=== PATIENT | female | born 1950 | race Caucasian/White ===

== ENCOUNTER → 2016-08-24 | Outpatient (CLI) | payer MEDICARE | END | disposition home or self-care (01) | LOC: CFH 10:19 | PROVIDERS: ATTEND Nurse Practitioner | DX: Z12.31 Encounter for screening mammogram for malignant neoplasm of breast (principal); Z13.820 Encounter for screening for osteoporosis; N95.8 Other specified menopausal and perimenopausal disorders; M85.80 Other specified disorders of bone density and structure, unspecified site | CPT/HCPCS: 77080; G0202 ==

== ENCOUNTER → 2017-12-20 | Outpatient (CLI) | payer MEDICARE | END | disposition home or self-care (01) | LOC: CFH 12:01 | PROVIDERS: ATTEND Nurse Practitioner Primary Care | DX: R92.8 Other abnormal and inconclusive findings on diagnostic imaging of breast (principal) | CPT/HCPCS: 77065 ==

== ENCOUNTER → 2018-01-13 | Outpatient (CLI) | payer MEDICARE ==
[~2018-01-13] MED LIST: LIDOCAINE 1%, 20ML ONE; LIDOCAINE 1%-EPI 1:100K, 30ML ONE
== END | disposition home or self-care (01) ==
LOC: CFH 09:58
PROVIDERS: ATTEND Nurse Practitioner Primary Care
DX: N64.89 Other specified disorders of breast (principal)
CPT/HCPCS: 19083; 77065; 88305; J3490; 19084; 88360

== ENCOUNTER → 2018-01-23 | Outpatient (CLI) | payer MEDICARE ==
[~2018-01-23] MED LIST changes: +LIDOCAINE 1%-EPI 1:100K, 20ML ONE; -LIDOCAINE 1%-EPI 1:100K, 30ML ONE; +SODIUM BICARBONATE 4.0%, 5ML ONE
== END | disposition home or self-care (01) ==
LOC: CFH 07:23
PROVIDERS: ATTEND Nurse Practitioner Primary Care
DX: C50.912 Malignant neoplasm of unspecified site of left female breast (principal)
CPT/HCPCS: 19285; 19286; 77065; J3490

== ENCOUNTER 2018-03-16 07:50 | Outpatient (CLI) | payer MEDICARE ==
[~2018-03-16 07:50] MED LIST changes: +ASCO-90 PO; +ASPI-496 PO; +CHOL2000 PO; +CYAN500T2 PO; +EZET10TA18 PO; +FENO160T PO; +GABA300C10 PO; +GLIP10TA13 PO; +INSU100I13 SQ; +LEVO150T5 PO; -LIDOCAINE 1%, 20ML ONE; -LIDOCAINE 1%-EPI 1:100K, 20ML ONE; +LOSA50TA14 PO; +MAGN400C PO; +METF500T17 PO; +MONT10TA9 PO; +OMEG-14 PO; +OMEP20TA62 PO; +PIOG15TA66 PO; +SERT100T32 PO; -SODIUM BICARBONATE 4.0%, 5ML ONE; +SPIR25TA5 PO; +UBID100C24 PO
== END 2018-03-16 23:59 | disposition home or self-care (01) ==
LOC: ROC 07:50
PROVIDERS: ATTEND Radiology Radiation Oncology
DX: C50.412 Malignant neoplasm of upper-outer quadrant of left female breast (principal)
CPT/HCPCS: 99214; G0463

== ENCOUNTER → 2018-05-23 | Outpatient (CLI) | payer MEDICARE | END | disposition home or self-care (01) | LOC: CFH 12:29 | PROVIDERS: ATTEND Internal Medicine Hematology & Oncology | DX: M85.88 Other specified disorders of bone density and structure, other site (principal); Z85.3 Personal history of malignant neoplasm of breast | CPT/HCPCS: 77080 ==

== ENCOUNTER → 2019-12-18 | Outpatient (CLI) | payer MEDICARE ==
[~2019-12-18] MED LIST changes: -CYAN500T2 PO; +CYAN500T54 PO; -EZET10TA18 PO; +EZET10TA70 PO; +MONT10TA11 PO; -MONT10TA9 PO
== END | disposition home or self-care (01) ==
LOC: CFH 12:08
PROVIDERS: ATTEND Internal Medicine Hematology & Oncology
DX: Z12.31 Encounter for screening mammogram for malignant neoplasm of breast (principal); C50.412 Malignant neoplasm of upper-outer quadrant of left female breast; M85.80 Other specified disorders of bone density and structure, unspecified site
CPT/HCPCS: 76641; 77063; 77067